=== PATIENT | male | born 1970 | race Caucasian/White ===

== ENCOUNTER 2017-07-05 20:06 | Emergency (ER) | payer OTHER ==
[2017-07-05] MEDS ORDERED: Azithromycin 250 MG TAB ONE (20:45)
== END 2017-07-05 20:49 | disposition home or self-care (01) ==
LOC: SCSER 20:06
DX: J20.9 Acute bronchitis, unspecified (principal)
CPT/HCPCS: 99283

== ENCOUNTER 2018-05-06 15:09 | Emergency (ER) | payer OTHER ==
--- NOTE | 2018-05-06 16:41 | RAD ---
RIGHT ANKLE THREE VIEW: 05/06/18 HISTORY: Ankle pain. COMPARISON: None. FINDINGS: There is some calcifications along the right lateral soft tissues. Extensive soft tissue swelling. No acute displaced fracture is appreciated. Large plantar and dorsal calcaneal spurs. IMPRESSION: 1. Extensive soft tissue swelling. 2. Possible plantar calcification versus phleboliths in the lateral soft tissues of the distal f ibula. POS: [facility]
== END 2018-05-06 16:21 | disposition home or self-care (01) ==
LOC: ERS 15:09
DX: T81.4XXA Infection following a procedure, initial encounter (principal)